=== PATIENT | female | born 1950 | race Caucasian/White ===

== ENCOUNTER → 2017-08-26 15:17 | Outpatient (CLI) | payer MEDICARE, BC, SELFPAY ==
[2017-08-26 16:05] LABS: Amphetamine Urine VISTA NEGATIVE (<1000 ng/mL); Barbiturate Urine VISTA NEGATIVE (< 200 ng/mL); Benzodiazepine Urine VISTA NEGATIVE (< 200 ng/mL); Cocaine Urine VISTA NEGATIVE (< 300 ng/mL); Ecstacy Urine VISTA NEGATIVE (< 500 ng/mL); Methadone Urine VISTA NEGATIVE (< 300 ng/mL); PCP Urine VISTA NEGATIVE (< 25 ng/mL); THC Urine VISTA NEGATIVE (< 50 ng/mL); Vista UDS pH Range 6
== END ==
PROVIDERS: Visit Provider Anesthesiology Pain Medicine
DX: F11.20 Opioid dependence, uncomplicated (principal)
CPT/HCPCS: 80307

== ENCOUNTER → 2019-02-02 13:13 | Outpatient (CLI) | payer MEDICARE, BC, SELFPAY ==
--- NOTE | 2019-02-02 13:24 | MRI_ITS ---
STUDY: MRI LUMBAR SPINE WITHOUT CONTRAST REASON FOR EXAM: Female, 68 years old. Back pain radiating to the right leg. TECHNIQUE: Standardized fat and water weighted pulse sequences were obtained in the sagittal and axial planes. COMPARISON: None FINDINGS: Slightly exaggerated lumbar lordosis. No significant scoliosis. Conus medullaris terminates normally at the L1 level. No acute fracture. No dislocation. No bone destruction. Paraspinal muscle atrophy. Normal aorta. Normal retroperitoneum. T12-L1: Normal endplates. Disc desiccation. Minimal facet joint arthrosis. Normal central canal and bilateral lateral recesses. Normal bilateral intervertebral neural foramina. L1-2: Mild endplate spondylosis. Disc bulge, asymmetric right foraminal extension, without central canal narrowing. Facet joint arthrosis with small effusions. Normal central canal and bilateral lateral recesses. Right neural foraminal narrowing without impingement . Minimal grade 1 spondylolisthesis. L2-3: Normal endplates. Shallow disc bulge. Moderate facet joint arthrosis with small effusions. Normal central canal and bilateral lateral recesses. Bilateral neural femoral narrowing with contact of the left exiting nerve root (axial image 18 series 5). L3-4: Normal endplates. Disc bulge, left paracentral cephalad disc extrusion (sagittal image 5 series 2 and axial image 14 series 5) with herniated disc material measuring approximately 10 mm x 10 mm x 9 mm), with mild central canal narrowing. Mild/moderate facet joint arthrosis with trace effusions. Left lateral recess narrowing with impingement. Bilateral neural foramina narrowing with contact of the left exiting nerve root (axial image 13 series 5). L4-5: Mild endplate spondylosis. Disc bulge/uncovering with mild central canal narrowing. Moderate/severe facet joint arthrosis with small effusions. Left lateral recess narrowing without impingement. Bilateral neural foraminal narrowing without impingement. Grade 1 spondylolisthesis. Vacuum phenomenon. L5-S1: Mild endplate spondylosis. Shallow disc bulge. Severe central canal narrowing. Severe facet joint arthrosis with small effusions. Normal bilateral lateral recesses. Bilateral neural foraminal narrowing without impingement. Epidural fat contributes to canal narrowing. Vacuum phenomenon. MRI/Spine Lumbar (Routine) IMPRESSION: Multilevel intervertebral disc disease with extrusion at the L3-4 level Multilevel lateral recess narrowing with impingement at the L4 descending nerve root Multilevel neural foraminal narrowing with contact of the exiting left L2 and L3 nerve roots Grade 1 spondylolisthesis at the L1-2 and L4-5 level Exaggerated lumbar lordosis with moderate/severe osteoarthritis Electronically Signed: Bobby Rae DO at 15:28 EST Tel , Service support ,
== END ==
PROVIDERS: Family Provider Family Medicine; PCP Family Medicine; Referring Provider Anesthesiology Pain Medicine; Visit Provider Anesthesiology Pain Medicine
DX: M54.9 Dorsalgia, unspecified (principal); M79.604 Pain in right leg
CPT/HCPCS: 72148